=== PATIENT | male | born 1970 | race Caucasian/White ===

== ENCOUNTER 2020-05-06 16:50 | Inpatient (IN) | payer OTHER ==
[~2020-05-06] VITALS: Ht 165.1 cm; Wt 97.1 kg
[2020-05-06] MEDS ORDERED: DIPHENHYDRAMINE50 M1 PO (17:01)
[2020-05-06] MEDS ORDERED: ALL DAY ALLERGY10 MG PO (17:02)
[2020-05-06] MEDS ORDERED: VOLTAREN100 GM TOP (17:02)
[2020-05-06] MEDS ORDERED: VENTOLIN HFA18 GM INH (17:02)
[2020-05-06] MEDS ORDERED: ADVAIR 100-501 EACH INH (17:03)
[2020-05-06] MEDS ORDERED: MELATONIN5 M2 PO (17:04)
[2020-05-06] MEDS ORDERED: METOPROLOL SUCC25 MG PO (17:05)
[2020-05-06] MEDS ORDERED: NASACORT10.8 ML NAS (17:06)
--- NOTE | 2020-05-06 19:24 | EKG ---
[facility] [address] [facility] [place], [place] [address] Signed Normal sinus rhythm Normal ECG No previous ECGs available Confirmed by PENNIE HUFF MD ([id number]) on 05/06/2020 7:24:40 PM Electronically Signed By: PENNIE HUFF MD 05/06/20 1924 PATIENT NAME: CALISTA DUQUE Electrocardiogram DATE OF : 66 PHYSICIAN: PENNIE HUFF MD REPORT #: [id number] REPORT IS CONFIDENTIAL AND NOT TO BE RELEASED WITHOUT AUTHORIZATION
--- NOTE | 2020-05-06 20:15 | NUR ---
PT ARRIVES TO CCU ROOM 126 ADMITTED FOR COVID RULE OUT, HAS BEEN SICK FOR 8 DAYS AND TODAY HAD INCREASED SOB. ARRIVES ON 4L/O2/NC WITH SPO2 95%. ASSESSMENT DONE, LUNGS CLEAR AND DIM, PT IS HAVING SOME SHORTNESS OF BREATH WITH GETTING UP, TRANSFERRING. WAS ABLE TO VOID 350ML DARK CHIQUITA URINE INTO URINAL. ASSISTED INTO BED AND PLAN OF CARE DISCUSSED WITH PT.
--- NOTE | 2020-05-06 21:00 | NUR ---
IN TO GIVE HS MEDS AND MOTRIN FOR TEMP OF 101.2. PT GIVEN SANDWICH BOX AND JELLO PER REQUEST.
--- NOTE | 2020-05-06 23:30 | NUR ---
ASSISTED PT WITH GETTING UP TO VOID, WAS ABLE TO VOID 150ML DARK CHIQUITA UINE INTO URINAL. DENIES DIZZINESS WHILE UP. LUNGS CLEAR/DIM. STATES HE DOES FEEL SLIGHTLY SOB WITH ACTIVITY BUT RECOVERS QUICKLY ONCE HE LIES BACK DOWN IN BED. O2/2L IN PLACE, SATS REMAIN MID NINETIES. BLOOD CULTURES DRAWN AND NEW IV PLACED IN RIGHT HAND. PT NOW WANTS TO TRY TO SLEEP.
--- NOTE | 2020-05-07 03:10 | NUR ---
PT AWAKE IN BED, STATES HE IS HAVING TROUBLE SLEEPING HE IS VERY DIAPHORETIC. ASSISTED WITH WIPING HIM DOWN AND FRESH LINENS PLACED. TEMP 98.6, HR 60. ASSESSMENT DONE. PT ON 2L/O2/NC SPO2 96%. DENIES SOB. LUNGS SOUND CLEAR AND DIMINISHED.
--- NOTE | 2020-05-07 05:20 | NUR ---
IN TO DRAW BLOOD FROM IV. PT VERY DIAPHORETIC, ASSISTED WITH WIPING HIM DOWN. ASKED HOW HE IS FEELING, HE STATES "I FEEL BETTER, IM JUST SO SWEATY". REMAINS ON 2L/NC WITH SPO2 95%, HR 60'S. DENIES FEELING SOB AT THIS TIME.
--- NOTE | 2020-05-07 08:53 | NUR ---
Pt sitting up in bed, alert and oriented x4. Pt reports he has been "sweating" all night. Pt noted to be a bit diaphoretic. Pillow cases and linens noted to be damp. Fresh linens placed. Pt able to stand and void at this time. Breakfast to patient. Pt denies sob and or chest pain, respirations are even and non labored. Pt remains on 2l nc, sat level of 96%. Morning medication pass completed. Pt reports he feels a bit better today. Lung sounds are clear/diminished throughout. Notable intermittent dry cough. Two correctional officers with patient. No needs at this time. Pt verbalized he is able to call staff if he needs help. Call light within reach.
[2020-05-07] MEDS ORDERED: LOPERAMIDE2 M1 PO (09:30)
[2020-05-07] MEDS ORDERED: ZOFRAN4 MG PO (09:31)
[2020-05-07] MEDS ORDERED: MUCINEX600 MG PO (09:32)
--- NOTE | 2020-05-07 09:32 | NUR ---
MED REC COMPLETE
--- NOTE | 2020-05-07 10:59 | NUR ---
Patient sitting up in bed, alert and oriented x4. Pt remains on 2l oxygen, respirations non labored. Pt denies sob. Remdesivir started; both patient and Dr. Womack have consented to treatment. Pt's questions answered regarding medication prior to administration. Patient educated regarding proning. Instructions placed on board, pt also verbalized his understanding and is able to demonstate positioning at this time. Pt given robitussin 10ml for reported cough. Pt remains on 2L of oxygen, sat level trending in high 90's. Pt denies needs at this time. Two correctional officers continue to monitor. offi
--- NOTE | 2020-05-07 12:32 | NUR ---
Patient sitting on right side at this time, respirations non labored, 24/min. CPOX intact, 98% on 2l oxygen. Pt reports mild shortness of breath with movement only. Vital signs remain stable. No needs. Personal supplies and call light within reach.
--- NOTE | 2020-05-07 14:05 | NUR ---
UNABLE TO VISIT PT DUE TO PRECAUTIONS. [facility] GUARDS POSTED OUTSIDE RM. WILL FOLLOW NEEDED
--- NOTE | 2020-05-07 14:17 | NUR ---
Patient resting in bed on right side, respirations even and non labored. Pt is on 2L at 94%., resp 24/min, pt denies sob at rest. Water replenished. Pt tolerated lunch well. Lung crowell throughout remain clear/diminished. No needs at this time. Personal supplies and call light within reach
--- NOTE | 2020-05-07 16:49 | NUR ---
THIS RN IN PTS ROOM TO PROVIDE PT WITH A CLEAN URINAL TO PROVIDE A URINE SPECIMEN. PT ALSO REQUESTED A SPRITE, THIS WAS PROVIDED TO PT AT THIS TIME WELL. THIS RN WAS ABLE TO GET DINNER ORDERED AND WILL PROVIDE PT WITH MORE ROBITUSSIN PER PTS REQUEST WHEN FOOD IS DELIVERED TO PT.
--- NOTE | 2020-05-07 17:15 | NUR ---
Sol from RN, pt sleeping. Cont. with oxygen support. Correctional officers in hilliard at his door.
--- NOTE | 2020-05-07 17:26 | NUR ---
FROM THE DOOR THIS RN DISCUSSED WITH PT TO HAVE HIM TRY TO PRONE. PT STATES THAT HE DOESN'T LIKE TO LAY ON HIS BELLY. PT STATED HE WILL TRY TO PRONE, PT ONLY ABLE TO GET OVER HIS RIGHT SIDE. THIS RN EDUCATED PT ABOUT WHY WE HAVE PTS PRONE. PT STATED HE UNDERSTOOD TEACHING BY THIS RN. PT STILL ONLY WANTING TO SIDE LAY ON HIS RIGHT SIDE AT THIS TIME.
--- NOTE | 2020-05-07 18:07 | NUR ---
THIS RN IN PTS ROOM TO GIVE PT HIS DINNER, DO VITALS, ASSESSMENT AND PROVIDE PT WITH ROBITUSSIN. THIS RN PROVIDED PT WITH MORE EDUCATION OF HOW COVID-19 CAN EFFECT THE LUNGS AUTOMATIC LINE SET UP MECHANIC AND WHY PT NEEDS TO PRONE AND MOVE SIDE TO SIDE. PT STATED UNDERSTANDING AFTER THIS RN SPOKE WITH PT ABOUT HAVING HIM PUT IN SOME WORK TO GET BETTER. PT STOOD TO EAT DINNER AND STATES THAT HE WANTS TO TRY PRONING ON HIS BELLY TONIGHT AFTER HIS MEAL HAS DIGESTED. PT STATED THAT HE HAS BEEN HAVING SOME CHILLS, ORAL TEMP WAS NORMAL AT THIS TIME. PT STATES THAT HE HASN'T HAD A BM IN 5 DAYS, IN THE CHART IT STATES THAT HE HAD A BM 10/5. PT STATES THAT HE IS PASSING GAS AND STATES THAT HE FEELS A BM COMING ON SOON.
--- NOTE | 2020-05-07 20:00 | NUR ---
TEMP AT THIS TIME IS STLL 101. F AXILLARY. ALL LOBES ARE COARSE, PT ON 11L O2 HIGH FLOW NC. PULSES ARE WDL, NO EDEMA NOTED, ABD SOUNDS PRESENT, URINE OUTPUT IS STILL LOW AROUND 25MLS/ HR. WILL CALL MD ABOUT FEVER AND THAT PRN TYLENOL SUPP DID NOT HELP HIS FEVER.
--- NOTE | 2020-05-07 20:30 | NUR ---
PT AT THIS TIME IS AFEBILE. PT IS STILL WEAK WHEN WALKING THOUGH. LOBES ARE CLEAR BUT THIGHT. NOT MUCH AIR MOVEMENT WAS NOTED. PULSES ARE WDL, ABD SOUNDS ARE PRESENT. URINE OUTPUT IS ADEAQUATE SO FAR THIS SHIFT. PT UP IN CHAIR AT THIS TIME.
--- NOTE | 2020-05-07 22:15 | NUR ---
PT AT THIS TIME IS SLEEPING. NO NEW CONCERNS NOTED AT THIS TIME.
--- NOTE | 2020-05-08 | NUR ---
PT AT THIS TIME WAS SLEEPING. ALL LOBES ARE STILL CLEAR AND THIGHT. NO NEW CONCERNS HAVE BEEN NOTED. PT IS PRONING SELF.
--- NOTE | 2020-05-08 01:58 | NUR ---
PT AT THIS TIME IS SLEEPING ON HIS SIDE. NO NEW CONCERNS NOTED AT THIS TIME.
--- NOTE | 2020-05-08 04:12 | NUR ---
PT DID NEED SOME PRN ROBITUSSIN FOR HIS COUGH. PT IS STILL AFEBRILE AND HIS O2 NEEDS HAVE NOT CHANGED THIS SHIFT. URINE OUTPUT HAS BEEN ADQUATE, ALL LOBES ARE STILL DIMINISHED AND TIGHT. NO NEW CONCERNS NOTED SO FAR. WILL CONTINUE TO MONITOR.
--- NOTE | 2020-05-08 06:14 | NUR ---
PT RECEIVED SOME MOTRIN FOR HIS HEADACHE WHICH WAS A 5/10. PT NEEDS SOME HUMIDIFIED O2 IT SEEMS, HIS NOSE IS VERY DRY. PT STILL SELF PRONING SO FAR. NO NEW CONCERNS NOTED SO FAR.
--- NOTE | 2020-05-08 08:00 | NUR ---
Report recieved from [place] GUTIÉRREZ. Pt up for breakfast this morning. VSS. Lung sounds still reportedly tight and diminished. Pt sating 100% on 2L via NC. Pt denies pain, nausea. Reports last BM was 5 days ago but says he hasn't ate much d/t decrease in appetite, is still passing gas. Abdomen is soft, non-tender. Voiding without difficulty, clear yellow urine. Call light within reach.
--- NOTE | 2020-05-08 08:07 | PATH ---
[facility] [address] [place], [place] [address] Signed ORDERING PHYSICIAN: Michael Akers MD PATIENT NAME: CALISTA DUQUE GENDER: M : 1970 Prior History: No cases found. SPECIMEN(S): MOLECULAR PATHOLOGY RESULTS: SARS-CoV-2 DETECTED ADDITIONAL NOTES.: The [employer] Fusion SARS-CoV-2 Assay is a multiplex real-time PCR (RT-PCR) in vitro diagnostic test intended for the qualitative detection of RNA from SARS-CoV-2 from individuals who meet COVID-19 clinical and/or epidemiological criteria. In general, SARS-CoV-2 RNA can be detected during the acute phase of infection. Positive results indicate the presence of SARS-CoV-2 RNA. Clinical correlation with patient history and other diagnostic information is necessary to determine patient infection status. Positive results do not rule out bacterial infection or co-infection with other viruses. Negative results do not preclude SARS-CoV-2 infection and should not be used as the sole basis for patient management decisions. Negative results must be combined with other clinical observations, patient history, and epidemiological information. The [employer] Fusion SARS-CoV-2 Assay is not yet approved or cleared by the [place] FDA. When there are no FDA-approved or cleared tests available, and other criteria are met, FDA can make tests available under an emergency access mechanism called an Emergency Use Authorization (EUA). The EUA for this test is supported by the [place] of Health and Human Service's (HHS's) declaration that circumstances exist to justify the emergency use of in vitro diagnostics for the detection and/or diagnosis of the virus that causes COVID-19. This EUA will remain in effect for the duration of the COVID-19 declaration justifying emergency of IVDs, unless it is terminated or revoked by FDA, after which the test may no longer be used. The [employer]wood Fusion SARS-CoV-2 Assay is for use only under EUA PATIENT NAME: CALISTA DUQUE PATHOLOGY DATE OF : 66 REPORT #: [id number] PHYSICIAN: MATTHEW ARORA PCP: SHARI AMATO MD REPORT IS CONFIDENTIAL AND NOT TO BE RELEASED WITHOUT AUTHORIZATION [facility] [address] [place], [place] [address] Signed in [place] laboratories certified under the Clinical Laboratory Improvement Amendments of 1988 (CLIA) to perform high complexity tests. [facility] is certified under CLIA to perform high complexity clinical laboratory testing. PERFORMING LABORATORY.: Molecular testing was performed by [facility] [address] [place], [place] [address] [address] (Parking Patroller: Hank Cardona D.O.; CLIA#: [id number]) Diagnostician: System Interface Pathologist Electronically Signed 05/08/2020 Copies: ~ PATIENT NAME: CALISTA DUQUE PATHOLOGY DATE OF : 66 REPORT #: [id number] PHYSICIAN: MATTHEW ARORA PCP: SHARI AMATO MD REPORT IS CONFIDENTIAL AND NOT TO BE RELEASED WITHOUT AUTHORIZATION
--- NOTE | 2020-05-08 10:00 | NUR ---
Both IV sites are patent and flushing well. Took pt off O2 and pt is still sating in mid-90's. Pt back in bed. Says he's not sleeping well at night and would like to get some rest today. Call light within reach.
--- NOTE | 2020-05-08 12:15 | NUR ---
Pt was up to chair for lunch. Ordered lunch per pt preference d/t pt's decreased appetite. Pt still able to maintain sat's in the 92-96% on room air since 1000 this morning. Pt denies pain, nausea and is without complaint. Call light within reach.
--- NOTE | 2020-05-08 14:22 | NUR ---
[facility] OFFICIERS OUT SIDE PT'S RM, STILL UNDER PRECAUTIONS. WILL FOLLOW
--- NOTE | 2020-05-08 17:00 | NUR ---
Update from RN, pt feeling better and is off 02.
--- NOTE | 2020-05-08 19:23 | NUR ---
Pt has been independent in room all day. Been able to tolerate room air and sat >92%. Pt has been without complaint. Drinking lots of fluids and voiding well. Pt in bed now watching television, call light is within reach.
--- NOTE | 2020-05-08 19:30 | NUR ---
Report received, orders acknowledged. Patient laying in bed on right side on RA. Saturations in the low to mid-90's. Call light within reach.
--- NOTE | 2020-05-08 22:00 | NUR ---
Patient sitting up in chair watching tv. SpO2 in the mid-90's on RA. Patient reports SOB, prn breathing treatment given. Denies pain. PM medications given, vitals taken. Dry cough noted, prn medication given (see MAR). Assessment complete. Water refreshed, hot towel provided for patient to wash face. Patient requests to take a shower. 5-point restraints removed by two correctional officers in room. Supplies provided. Patient showers with two correctional officers in room.
--- NOTE | 2020-05-09 00:05 | NUR ---
Patient laying in bed watching tv. Vital signs taken, assessment complete. Lung sounds clear in uppers, tight in bases. Patient reports breathing tx decreased his SOB. Denies needs at this time, call light within reach.
--- NOTE | 2020-05-09 03:35 | NUR ---
Patient sleeping in bed on right side, respirations even and unlabored. 2LNC in place, SpO2 in the mid-90's. Five-point restraints in place, call light within reach.
--- NOTE | 2020-05-09 04:25 | NUR ---
Patient laying in bed on right side. Vital signs taken, assessment complete. PRN medications given (see MAR). Urinal emptied. Patient sitting up at bedside for breathing tx, SOB noted upon exertion. Intermittent coughing as well. Water refreshed, denies needs at this time. Call light within reach.
--- NOTE | 2020-05-09 06:55 | NUR ---
Patient sleeping in bed on right side, respirations even and unlabored. 2LNC in place, SpO2 in the mid-90's. Call light within reach.
--- NOTE | 2020-05-09 07:30 | NUR ---
PATIENT SHIFT REPORT RECIEVED FROM FLOWER PICKER RN. PATIENT RESTING IN THE CHAIR AT THIS TIME. PATIENT IS ABLE TO STAND AND TRANSFER FROM CHAIR TO BED ON HIS OWN. PATIENT IS CURRENTLY ON RA. WILL CONTINUE TO CLOSELY MONITOR.
--- NOTE | 2020-05-09 09:30 | NUR ---
PATIENT SHIFT ASSESSMENT COMPELTED. PATIENT SITTING UP IN THE CHAIR AT THIS TIME. PATIENT STATES "I FEEL MUCH BETTER AT THIS TIME". PATIENT REPORTS DECREASED SOB WITH REST AND STILL HAS SOME SOB WITH ACTIVITY,BUT NOT BAD. PATIENT HAS MILD COUGH WITH LITTLE SPUTUM PRODUCATION. PATIENT RR 20. PATIENT REMAINS ON RA AT THIS TIME. UNABLE TO LISTEN TO BOWEL TONES AT THIS TIME. PATIENT DENIES NAUSEA. NO EDEMA NOTED. FRESH WATER PROVIDED. CALL LIGHT AT SIDE. WILL CONTINUE TO CLOSELY MONITOR.
--- NOTE | 2020-05-09 11:30 | NUR ---
PATIENT RESTING BACK IN THE BED AT THIS TIME. PATIENT IS AMBULATORY AND GETS UP FROM THE CHAIR TO THE BED ON HIS OWN. PATIENT DENIES ANY ISSUES AT TIMES. LUNCH ORDERED.
--- NOTE | 2020-05-09 13:29 | NUR ---
PT SITTING UP I CHAIR ASLEEP. [facility] GUARDS POSTED OUTSIDE RM IN [place]. WILL FOLLOW NEEDED
--- NOTE | 2020-05-09 13:30 | NUR ---
THIS RN IN TO CHECK ON PATIENT. PATIENT FINISHED WITH LUNCH AND IS BACK IN BED AT THIS TIME. WARM BLANKET OFFERED PATIENT REFUSED. PATIENT WATCHING TV. WILL CONTINUE TO CLOSELY MONITOR.
--- NOTE | 2020-05-09 15:24 | NUR ---
PATIENT SLEEPING AT THISTIME. PATIENTS RR EVEN AND UNLABORED AT 16 BREATHS PER MINUTE. PATIENT REMAINS IN WRIST AND ANKLE SOFT SHACKLES. CMS INTACT. 2 GARDS SITTING AT THE DOOR. WILL CONTINUE TO CLOSELY MONITOR.
--- NOTE | 2020-05-09 15:38 | NUR ---
No change in dc plan.
--- NOTE | 2020-05-09 16:45 | NUR ---
PATIENT RESTING IN THE CHAIR AT THSI TIME. DINNER ORDERED. VITALS COMPLETED. PATIENT CONTINUES TO DO WELL TODAY. PATIENT WORKING ON INCENTIVE SPIROMETER AND ABLE TO GET 1250. PATIENT JOKING WITH STAFF AT TIMES AND LAUGHING. PATIENT ASSESSMENT REMAINS UNCHANGED. CORRECTIONAL SHACKLES IN PLACE. CMS INTACT. WILL CONTINUE TO CLOSELY MONITOR.
--- NOTE | 2020-05-09 18:30 | NUR ---
PATIENT SITTING IN THE CHAIR. PATIENT DENIES ANY NEEDS AT THIS TIME. PATIENT WORKING ON HIS DINNER. NO OTHER NEEDS AT THIS TIME. WILL CONTINUE TO CLSOELY MONITOR.
--- NOTE | 2020-05-09 19:15 | NUR ---
Report received, orders acknowledged. Patient laying on right side, respirations even and unlabored. Patient on RA, SpO2 in the mid-90's. Five-point restraints in place, two correctional officers sitting outside of room. Call light within reach.
--- NOTE | 2020-05-09 20:00 | NUR ---
Patient laying in bed watching tv. Vital signs taken, assessment complete. PM medications given. Lung sounds clear in uppers, crackles noted in bases. Patient uses incentive spirometer. Breathing tx administered. Dry cough noted, patient reports a productive cough occassionally. Linens changed, patient denies need to take a shower. Warm cloth provided for patient to wash face and arms. Patient stands at bedside to use urinal, increased SOB noted with activity. Patient returns to bed independently. Warm blankets provided. Patient on RA, SpO2 in the low 90's. Denies further needs, call light within reach.
--- NOTE | 2020-05-09 22:47 | NUR ---
Patient sleeping in bed on right side, respirations even and unlabored. 2L oxymask in place, SpO2 of 96%. Five-point restraints in place, two correctional officers sitting outside of room. Call light within reach.
--- NOTE | 2020-05-10 00:55 | NUR ---
Patient sleeping in bed, respirations even and unlabored. 2L oxymask in place, SpO2 in the upper 90's. Five-point restraints in place, two correctional officers at bedside. Call light within reach.
--- NOTE | 2020-05-10 02:00 | NUR ---
Patient sleeping in bed on right side, respirations even and unlabored. 2L oxymask in place, SpO2 in the upper 90's. Five-point restraints in place, two correctional officers sitting outside of room. Call light within reach.
--- NOTE | 2020-05-10 05:00 | NUR ---
Patient sleeping in bed, rouses to voice. Vital signs taken, assessment complete. Blood drawn and sent off to lab. Water refreshed. Patient begins coughing and states "my coughing is worse this morning." Breathing tx administered, prn medications given (see MAR). Five-point restraints in place, one airconditioning drafting officer in room at bedside. Patient denies further needs, call light within reach.
--- NOTE | 2020-05-10 07:30 | NUR ---
PATIENT SHIFT REPORT RECIEVED FROM SCHOOL INSPECTOR RN. PATIENT RESTING IN BED AT THIS TIME WITH 2L OXYMASK IN PLACE. PATIENT DESATS WHILE SLEEPING. WHEN AWAKE PATIENT REMOVES OXYMASK AND REMAINS ON RA WITH SPO2 93% OR GREATER. WILL CONTINUE TO CLOSELY MONTIOR.
--- NOTE | 2020-05-10 08:45 | NUR ---
PATIENT SHIFT ASSESSMENT COMPLETED. PATIENT UP TO THE CHAIR AND MEDICATIONS ADMINISTERED. PATIENT REPORTS INCREASED COUGING EPISODES WITH NO SPUTUM PRESENT. PATIENT FEELS A LITTLE MORE WORN OUT THIS AM D/T COUGHING EPISODES. PATIENT DENIES SOB AT REST, BUT INCREASES WITH STANDING OR COUGHING. PATIENT WORKING ON INCENTIVE SPIROMETER. NO EDEMA NOTED. PATIENT REPORTS NO BM FOR 6 DAYS. SEE NEW ORDERS. BREAKFAST ORDERED. WILL CONTINUE TO CLOSELY MONITOR.
--- NOTE | 2020-05-10 10:12 | NUR ---
PATIENT RESTING AT THIS TIME. PATIENT ATE ALL HIS BREAKFAST AND SAYS HIS TASTE IS RETURNING. NO OTHER NEEDS AT THIS TIME. PATIENT BACK TO BED TO TAKE A NAP. WILL CONTINUE TO CLOSELY MONTIOR.
--- NOTE | 2020-05-10 10:46 | NUR ---
DUE TO PRECAUTIONS, I AM UNABLE TO VISIT PT. JUANI GUARDS POSTED OUTSIDE OF DOOR IN HALLWAY. WILL FOLLOW NEEDED
--- NOTE | 2020-05-10 12:00 | NUR ---
PATIENT ASSESSMENT COMPLETED AND NO CHANGES NOTED. PATIENT TRANSFERED OVER TO A TELE TO MAKE IT EASIER TO GET UP AND USE THE BATHROOM. PATIENT REPORT HE HAD A SMALL MOVMENET. ENCOURAGED TO TAKE 1 DOSE OF STOOL SOFTENER AND SEE IF THAT HELPS. PATIENT AGREEABLE TO PLAN OF CARE. LUNCH ORDERED. NO OTHER NEEDS AT THIS TIME. WILL CONTINUE TO CLOSELY MONITOR.
--- NOTE | 2020-05-10 13:15 | NUR ---
CALLED [facility] [phone] AND LEFT VOICEMAIL MESSAGE ON SECURE LINE LETTING THEM KNOW PATIENT WILL MOST LIKELY BE DISCHARGED BACK TO [facility] TOMORROW ACCORDING TO DR NEIL. PATIENT IS NOT REQUIRING OXYGEN DURING DAYTIME, HAS USED 2L AT NOC ON OCCASION AND IS NOT SURE IF IT WILL BE NEEDED AT DISCHARGE YET.
--- NOTE | 2020-05-10 14:00 | NUR ---
PATIENT IS RESTING IN BED ON HIS SIDE AT THIS TIME SLEEPING. PATIENT HAS STATED MULTIPLE TIMES TODAY "IM JUST SO TIRED". WILL ALLOW PATIENT TO REST AT THIS TIME.
--- NOTE | 2020-05-10 16:15 | NUR ---
PATIENT UP TO THE BATHROOM. PATIENT REPORT SOB WITH AMBULATION. SPO2 LOW OF 89% WITH AMBULATION AND QUICKLY RECOVERS TO THE MID 90'S ON RA ONCE SITTING BACK DOWN. NO OTHER NEEDS AT THIS TIME. WILL BE IN SHORTLY TO DO PATIENT ASSESSMENT.
--- NOTE | 2020-05-10 17:00 | NUR ---
PATIENT SITTING UP IN THE CHAIR. PATIENT REQUESTED A NEB. RT NOTIFIED. PATIENT SPO2 98% ON 2L NC. PATIENT STATES "THOSE NEBS ALWAYS HELP OPEN ME BACK UP". THIS RN IN TO DO ASSESSMENT AND MEDICATIONS. PATIENT JOKING WITH STAFF. WILL ORDER DINNER. NO OTHER NEEDS AT THIS TIME. WILL CONTINUE TO CLOSELY MONTIOR.
--- NOTE | 2020-05-10 20:00 | NUR ---
Patient laying in bed watching tv. Vital signs taken, assessment complete. Lung sounds dim and tight in bases, prn breathing tx administered. Coughing noted, prn medication given (see MAR). Urinal emptied of 400 mls of yellow urine. Water refreshed. Patient reports SOB with movement. Patient independent in room, steady on feet. IS and acapella used. Patietn denies pain or nausea. Denies further needs. Five-point restraints in place, one promotions officer at bedside. Call light within reach.
--- NOTE | 2020-05-10 23:35 | NUR ---
Patient sleeping in bed on right side, respirations even and unlabored. 2L oxymask in place with an SpO2 of 96%. HR in the 50's. Five-point restraints in place, two correctional officers sitting outside of room. Call light within reach.
--- NOTE | 2020-05-11 01:00 | NUR ---
Patient sleeping in bed on right side, respirations even and unlabored. 2L oxymask in place, SpO2 in the mid-90's. Tele battery replaced, urinal emptied. Patient rouses easily to voice, denies needs at this time. Five-point restraints in place, business practices officer in room at bedside. Call light within reach.
--- NOTE | 2020-05-11 02:19 | NUR ---
Patient laying on left side sleeping, respirations even and unlabored. 2L oxymask in place, SpO2 of 98%. HR in the 40's. Five-point restraints in place, two correctional officers sitting outside of room. Call light within reach.
--- NOTE | 2020-05-11 04:36 | NUR ---
Patient sleeping on right side, respirations even and unlabored. 2L oxymask in place, SpO2 of 97%. HR in the 60's. Five-point restraints in place, two correctional officers sitting outside room. Call light within reach.
--- NOTE | 2020-05-11 05:35 | NUR ---
Patient sleeping in bed on right side, respirations even and unlabored. Rouses easily to voice. Vital signs taken, assessment complete. Breathing tx administered. PRN medications given. Blood drawn and sent off to lab. Five-point restraints in place, one correctional guard at bedside. Call light within reach.
--- NOTE | 2020-05-11 06:48 | NUR ---
Patient sleeping in bed on left side, respirations even and unlabored. 2L oxymask in place, SpO2 of 97%. HR in the low 50's. Five-point restraints in place, two correctional officers sitting outside of room. Call light within reach.
--- NOTE | 2020-05-11 07:30 | NUR ---
REPORT RECIEVED. PATIENT IS RESTING IN BED. NO DISTRESS NOTED.
--- NOTE | 2020-05-11 09:00 | NUR ---
TOOK BREAKFAST WELL. DENIES NAUSEA. ASSESSMENT DONE. PATIENT C/O FEELING VERY TIRED AND WEAK. TELE REMAINS ON. O2 SAT ON RA 92-95.
[2020-05-11] MEDS ORDERED: METOPROLOL SUCC25 MG PO (10:08)
[2020-05-11] MEDS ORDERED: TESSALON PERLE100 MG PO (10:09)
[2020-05-11] MEDS ORDERED: DEXAMETHASONE6 MG PO (10:09)
--- NOTE | 2020-05-11 10:12 | NUR ---
REMDESIVIR INFUSING. PATIENT WILL BE DISCHARGED TODAY. DR. NEIL HAS BEEN HERE TO SEE PATIENT. NO FUTHER CHANGES.
--- NOTE | 2020-05-11 10:30 | NUR ---
REMDESIVIR COMPLETED. PATIENT W/O C/O.
--- NOTE | 2020-05-11 11:00 | NUR ---
DISCHARGE INSTRUCTIONS GIVEN WITH PAIENT UNDERSTANDING. SL DC'D WITH CATH INTACT. AMBULATED TO W/C.
--- NOTE | 2020-05-11 11:10 | NUR ---
DISCHARGED BACK TO [facility].
== END 2020-05-11 11:00 | disposition home or self-care (01) | DRG 177 ==
LOC: ED 16:50 → CCU 19:25
PROVIDERS: ADMIT Internal Medicine; ATTEND Internal Medicine
DX: U07.1 COVID-19 (principal); J12.89 Other viral pneumonia; J96.01 Acute respiratory failure with hypoxia; J45.31 Mild persistent asthma with (acute) exacerbation; K59.00 Constipation, unspecified; Z87.891 Personal history of nicotine dependence; Z88.6 Allergy status to analgesic agent; Z88.5 Allergy status to narcotic agent; Z79.51 Long term (current) use of inhaled steroids; Z79.899 Other long term (current) drug therapy
CPT/HCPCS: 71045; 80048; 80053; 80076; 81001; 83605; 83615; 83735; 85025; 87040; 93005; 93010; 94640; 94667; 99285-25; A9270; C9803; J1100; J1650; J7050; U0003